=== PATIENT | male | born 1970 | race Caucasian/White ===

== ENCOUNTER 2020-09-23 16:39 | Outpatient (CLI) | payer MEDICARE | END 2020-09-23 16:40 | disposition home or self-care (01) | LOC: COV 16:39 | PROVIDERS: ATTEND Family Medicine | DX: R05 Cough (principal); R09.81 Nasal congestion; J34.89 Other specified disorders of nose and nasal sinuses; Z20.822 Contact with and (suspected) exposure to COVID-19 ==

== ENCOUNTER 2023-07-22 10:56 | Outpatient (CLI) | payer MEDICARE ==
--- NOTE | 2023-07-22 13:28 | CT Report ---
PROCEDURE: Abdomen/Pelvis WO INDICATIONS: GROSS HEMATURIA TECHNIQUE: A CT scan of the abdomen and pelvis was performed without the use of intravenous contrast. Images we re recorded and evaluated at appropriate window settings. Reformats: coronal and sagittal. For radiat ion dose reduction, the following was used: automated exposure control, adjustment of mA and/or kV ac cording to patient size. COMPARISON: None. FINDINGS: Image quality: Diagnostic. Lower chest: Unremarkable. Liver: No contour-deforming mass. Gallbladder and biliary tree: Surgically absent gallbladder Spleen: No splenomegaly. Pancreas: No pancreatic ductal dilation. Adrenals: No adrenal nodule. Kidneys and ureters: Unremarkable appearance of the right kidney. Dilation of the left kidney with mo derate hydronephrosis, with several stones including one measuring up to 6 mm stone lodged in the pro ximal left ureter. Mild left perinephric stranding seen. A large nonobstructive 1.4 cm stone is also seen in the lower pole of the left kidney. Stomach, bowel and peritoneum: No bowel distension. No pathologic free fluid. Lymph nodes: No central or retroperitoneal adenopathy. Vessels: No infrarenal aortic aneurysm. PELVIS Reproductive organs: Unremarkable. Bladder: Decompressed, poorly evaluated Pelvic lymph nodes: No pelvic adenopathy by size criteria. Bones: Extensive postoperative surgical changes of the spine including but not limited to posterior s mary fusion, laminectomy. One of the surgical screws traverses the right S1-S2 neural foramina. Neur al stimulator device is also partially visualized. No suspicious osseous lesions. Other: No significant ventral or inguinal hernia. Vascular graft seen in the proximal iliac arteries. IMPRESSION: Several stones, one measuring up to 6 mm stone lodged in the proximal left ureter with resultant mode rate left hydronephrosis, perinephric stranding. Reviewed by: Fredi García MD on 07/22/2023 1:27 PM PDT Approved by: Fredi García MD on 07/22/2023 1:27 PM PDT Station ID: [id number]
== END 2023-07-22 10:57 | disposition home or self-care (01) ==
LOC: DI 10:56
PROVIDERS: ATTEND Physician Assistant
DX: R31.0 Gross hematuria (principal); N13.2 Hydronephrosis with renal and ureteral calculous obstruction

== ENCOUNTER 2023-09-30 11:23 | Outpatient (CLI) | payer MEDICARE ==
[2023-09-30 11:56] LABS: POTASSIUM 4.2 mmol/L (3.5-4.5)
== END 2023-09-30 11:24 | disposition home or self-care (01) ==
LOC: LAB 11:23
PROVIDERS: ATTEND Anesthesiology
DX: Z01.818 Encounter for other preprocedural examination (principal); Z79.01 Long term (current) use of anticoagulants; T85.193A Other mechanical complication of implanted electronic neurostimulator, generator, initial encounter; T85.192A Other mechanical complication of implanted electronic neurostimulator of spinal cord electrode (lead), initial encounter
CPT/HCPCS: 36415; 82565; 84132; 85014; 93005